=== PATIENT | female | born 1945 | race Caucasian/White ===

== ENCOUNTER 2022-02-12 07:54 | Inpatient (IN) | payer MEDICAID ==
[~2022-02-12] VITALS: Ht 157.5 cm; Wt 56.9 kg
[2022-02-12 08:55] LABS: BASOPHILS % 0.5 % (0.0-2.0); EOSINOPHILS % 3.6 % (0.0-5.0); HEMATOCRIT. 41.1 % (36.0-48.0); HEMOGLOBIN. 13.5 g/dL (12.0-16.0); LYMPHOCYTES % 26.9 % (20.0-50.0); MEAN CORPUSCULAR HEMOGLOBIN 29.7 pg (28.0-32.0); MEAN CORPUSCULAR VOLUME 90.8 fL (81.0-99.0); PLATELET 82 x1000/uL (130-400); RED BLOOD CELL COUNT 4.53 mill/uL (4.2-5.4)
[2022-02-12 09:01] LABS: CHLORIDE 110 mEq/L (98-107)
[2022-02-12 09:25] LABS: BG BASE EXCESS 5.4 mmol/L (-2.0-2.0); BG CARBOXYHEMOGLOBIN 0.7 % (0.5-1.5); BG DEOXYHEMOGLOBIN 4.6 % (0.0-5.0); BG HCO3 ACT 33.5 mmol/L (22.0-26.0); BG METHEMOGLOBIN 0.7 % (0.0-1.5); BG OXYGEN SATURATION 95.3 % (92.0-98.5); BG PCO2 66.1 mmHg (35.0-45.0); BG PH 7.323 (7.350-7.450); BG PO2 85.1 mmHg (75.0-100.0); BG SAMPLE SITE RIGHT RADIAL; BG TOTAL HEMOGLOBIN 13.6 g/dL (12.0-18.0)
[2022-02-12] MEDS ORDERED: FUROSEMIDE 40MG/4ML VIAL IVP ONE (10:00)
[2022-02-12] MEDS ORDERED: ENOXAPARIN 60MG/0.6ML SYR SUBCUT ONE (10:00)
[2022-02-12] MEDS ORDERED: ENALAPRIL 2.5MG/2ML VIAL 2ML IV ONE (10:00)
[2022-02-12] MEDS ORDERED: IPRATROPIUM/ALBUTEROL 0.5-3(2.5)MG/3ML NEB HHN PRN (10:15)
[2022-02-12] MEDS ORDERED: ONDANSETRON HCL 4MG/2ML INJ IV PRN (10:15)
[2022-02-12] MEDS ORDERED: ACETAMINOPHEN 325MG TABLET PO PRN (10:15)
[2022-02-12] MEDS ORDERED: ENALAPRIL 1.25MG/ML VIAL 1ML IV NR (10:30)
[2022-02-12 10:45] LABS: CLARITY URINE CLEAR (CLEAR); COLOR URINE YELLOW (YELLOW); KETONES URINE NEGATIVE (NEGATIVE); LEUKOCYTE ESTERASE URINE 3+ (NEGATIVE); NITRITE URINE NEGATIVE (NEGATIVE); OCCULT BLOOD URINE 1+ (NEGATIVE); PROTEIN URINE NEGATIVE (NEGATIVE)
[2022-02-12] MEDS: AMLODIPINE 10MG TABLET PO SCH (11:44)
[2022-02-12] MEDS ORDERED: IOHEXOL-350 100 ML BOTTLE ONE (12:20)
[2022-02-12] MEDS: FUROSEMIDE 40MG/4ML VIAL IVP SCH (17:29)
[2022-02-12 18:19] VITALS: BP 131/66
[2022-02-12 20:00] VITALS: BP 136/62
[2022-02-12] MEDS ORDERED: FAMO20TA8 MT (20:03)
[2022-02-12] MEDS ORDERED: FURO-152 MT (20:04)
[2022-02-12] MEDS ORDERED: MULT-1116 MT (20:05)
[2022-02-12] MEDS ORDERED: POTA8CAP20 PO (20:06)
[2022-02-12] MEDS ORDERED: SENN-257 PO (20:07)
[2022-02-12] MEDS ORDERED: CRAN3875 PO (20:08)
[2022-02-12] MEDS ORDERED: AMLO10TA80 MT (20:09)
[2022-02-12] MEDS ORDERED: DOCU-138 MT (20:10)
[2022-02-12] MEDS ORDERED: ASCO500C15 MT (20:11)
[2022-02-13] VITALS: BP 126/55
[2022-02-13] MEDS: ALBUTEROL 6.7GM HFA INHALER ORI SCH ×5 (00:58→18:31)
[2022-02-13 04:00] VITALS: BP 121/58
[2022-02-13 07:09] LABS: BASOPHILS % 0.3 % (0.0-2.0); EOSINOPHILS % 3.8 % (0.0-5.0); HEMATOCRIT. 40.5 % (36.0-48.0); HEMOGLOBIN. 13.6 g/dL (12.0-16.0); LYMPHOCYTES % 25.6 % (20.0-50.0); MEAN CORPUSCULAR HEMOGLOBIN 30.5 pg (28.0-32.0); MONOCYTES % 10.3 % (2.0-8.0); PLATELET 89 x1000/uL (130-400); RED BLOOD CELL COUNT 4.45 mill/uL (4.2-5.4); RED CELL DISTRIBUTION WIDTH 16.4 % (11.6-14.6)
[2022-02-13 07:55] LABS: BG BASE EXCESS 11.4 mmol/L (-2.0-2.0); BG CARBOXYHEMOGLOBIN 0.5 % (0.5-1.5); BG DEOXYHEMOGLOBIN 3.6 % (0.0-5.0); BG HCO3 ACT 38.9 mmol/L (22.0-26.0); BG METHEMOGLOBIN 0.2 % (0.0-1.5); BG OXYGEN SATURATION 96.4 % (92.0-98.5); BG OXYHEMOGLOBIN 95.7 % (94.0-97.0); BG PH 7.395 (7.350-7.450); BG PO2 87.6 mmHg (75.0-100.0); BG SAMPLE SITE RIGHT RADIAL; BG TOTAL HEMOGLOBIN 13.4 g/dL (12.0-18.0); BG VENT MODE NASAL CANNULA
[2022-02-13 08:00] VITALS: BP 127/83
[2022-02-13] MEDS: FUROSEMIDE 40MG/4ML VIAL IVP SCH (09:24)
[2022-02-13] MEDS: AMLODIPINE 10MG TABLET PO SCH (09:25)
[2022-02-13] MEDS ORDERED: DEXAMETHASONE 4MG TABLET PO SCH (11:00)
[2022-02-13 12:00] VITALS: BP 127/60
[2022-02-13] MEDS ORDERED: CEFTRIAXONE 1 G PREMIX 50 ML IV SCH (12:30)
[2022-02-13] MEDS: DEXTROSE 5% WATER 1,000 ML IV SCH (13:27)
[2022-02-13] MEDS: CEFTRIAXONE 1,000 MG in DEXTROSE 5% WATER 50 ML IV SCH (13:57)
[2022-02-13] MEDS: AZITHROMYCIN 500 MG in DEXT 5% WATER 250 ML IV SCH (14:38)
[2022-02-13 16:00] VITALS: BP 125/64
[2022-02-13 20:00] VITALS: BP 143/69
[2022-02-14 04:00] VITALS: BP 148/68
[2022-02-14] MEDS: ALBUTEROL 6.7GM HFA INHALER ORI SCH ×5 (05:08→18:00)
[2022-02-14 06:21] LABS: BASOPHILS % 0.1 % (0.0-2.0); HEMATOCRIT. 40.2 % (36.0-48.0); HEMOGLOBIN. 13.6 g/dL (12.0-16.0); LYMPHOCYTES % 9.5 % (20.0-50.0); MEAN CORPUSCULAR HEMOGLOBIN 30.2 pg (28.0-32.0); MEAN CORPUSCULAR VOLUME 89.3 fL (81.0-99.0); MEAN PLATELET VOLUME 8.3 fl (7.4-10.4); MONOCYTES % 1.3 % (2.0-8.0); NEUTROPHILS % 89.1 % (40.0-76.0); PLATELET 100 x1000/uL (130-400); RED BLOOD CELL COUNT 4.51 mill/uL (4.2-5.4); RED CELL DISTRIBUTION WIDTH 15.7 % (11.6-14.6)
[2022-02-14 08:00] VITALS: BP 121/45
[2022-02-14] MEDS: DEXTROSE 5% WATER 1,000 ML IV SCH (09:22)
[2022-02-14] MEDS: AMLODIPINE 10MG TABLET PO SCH (09:22)
[2022-02-14] MEDS: DEXAMETHASONE 6MG TABLET PO SCH (09:22)
[2022-02-14 12:00] VITALS: BP 106/48
[2022-02-14] MEDS: CEFTRIAXONE 1,000 MG in DEXTROSE 5% WATER 50 ML IV SCH (14:01)
[2022-02-14 16:00] VITALS: BP 113/55
[2022-02-14] MEDS: AZITHROMYCIN 500 MG in DEXT 5% WATER 250 ML IV SCH (16:07)
[2022-02-14 20:00] VITALS: BP 124/57
[2022-02-15] VITALS (7 sets, daily range): BP systolic 120–130; BP diastolic 44–56
[2022-02-15] MEDS: DEXTROSE 5% WATER 1,000 ML IV SCH (04:30)
[2022-02-15] MEDS: AMLODIPINE 10MG TABLET PO SCH (09:04)
[2022-02-15] MEDS: DEXAMETHASONE 6MG TABLET PO SCH (09:42)
[2022-02-15] MEDS: ALBUTEROL 6.7GM HFA INHALER ORI SCH ×2 (11:32→18:41)
[2022-02-15] MEDS: CEFTRIAXONE 1,000 MG in DEXTROSE 5% WATER 50 ML IV SCH (12:32)
[2022-02-15] MEDS: AZITHROMYCIN 500 MG in DEXT 5% WATER 250 ML IV SCH (13:32)
[2022-02-15] MEDS ORDERED: ENOXAPARIN 40MG/0.4ML SYR SUBCUT SCH (21:00)
[2022-02-16] VITALS: BP 144/69
[2022-02-16] MEDS: ALBUTEROL 6.7GM HFA INHALER ORI SCH ×2 (00:37→05:38)
[2022-02-16] MEDS: DEXTROSE 5% WATER 1,000 ML IV SCH (00:38)
[2022-02-16 04:00] VITALS: BP 140/52
[2022-02-16 09:08] VITALS: BP 121/52
[2022-02-16] MEDS: DEXAMETHASONE 6MG TABLET PO SCH (09:17)
[2022-02-16] MEDS: AMLODIPINE 10MG TABLET PO SCH (09:17)
[2022-02-16] MEDS ORDERED: FUROSEMIDE 40MG/4ML VIAL IVP NR (09:45)
[2022-02-16 12:00] VITALS: BP 128/55
[2022-02-16] MEDS: CEFTRIAXONE 1,000 MG in DEXTROSE 5% WATER 50 ML IV SCH (13:30)
[2022-02-16] MEDS: AZITHROMYCIN 500 MG in DEXT 5% WATER 250 ML IV SCH (14:00)
[2022-02-16 15:08] VITALS: BP 121/52
[2022-02-16 16:00] VITALS: BP 127/61
[2022-02-16] MEDS ORDERED: AZITHROMYCIN 500 MG TABLET PO SCH (17:00)
== END 2022-02-16 18:10 | DRG 137 ==
LOC: ER 07:54 → 7WST 09:54 → EDBEDREQ 09:56 → EDBEDREQTM 09:57 → EDBEDREQ 09:57 → EDBEDREQSVC 09:57 → CANRESERV 12:24 → ENRESERV 12:24 → EDBEDREQSVC 13:51 → CANRESERV 14:37 → ENRESERV 14:37 → EDBEDREQSVC 14:42 → ENRESERV 15:51 → 7EST 02-14 11:50
PROVIDERS: ADMIT Internal Medicine; ATTEND Internal Medicine
PROC: 5A0935A Assistance with Respiratory Ventilation, Less than 24 Consecutive Hours, High Flow/Velocity Cannula (ICD-10-PCS; principal; 2022-02-12)
PROC: 5A09357 Assistance with Respiratory Ventilation, Less than 24 Consecutive Hours, Continuous Positive Airway Pressure (ICD-10-PCS; 2022-02-12)
DX: U07.1 COVID-19 (principal); J96.01 Acute respiratory failure with hypoxia; I50.43 Acute on chronic combined systolic (congestive) and diastolic (congestive) heart failure; J96.02 Acute respiratory failure with hypercapnia; I11.0 Hypertensive heart disease with heart failure; J44.9 Chronic obstructive pulmonary disease, unspecified; I48.91 Unspecified atrial fibrillation; F03.90 Unspecified dementia, unspecified severity, without behavioral disturbance, psychotic disturbance, mood disturbance, and anxiety; M24.412 Recurrent dislocation, left shoulder; D69.6 Thrombocytopenia, unspecified; S81.802A Unspecified open wound, left lower leg, initial encounter; X58.XXXA Exposure to other specified factors, initial encounter; Y93.89 Activity, other specified; Y92.89 Other specified places as the place of occurrence of the external cause; Y99.8 Other external cause status
CPT/HCPCS: 36415; 36600; 71045; 71275; 80048; 80053; 81003; 82375; 82805; 83605; 83880; 84484; 85025; 85379; 87426; 93005; 94660; 99291; C9803; J0456; J0696; J1650; J1940; J3490; J7060; J7070; J8540; Q9967; U0003; U0005

== ENCOUNTER 2023-11-25 08:42 | Inpatient (IN) | payer MEDICAID ==
[~2023-11-25] VITALS: Ht 157.5 cm; Wt 55.6 kg
[2023-11-25] VITALS (46 sets, daily range): BP systolic 94–137; BP diastolic 48–79; PULSE 59–70; RESP 11–26; TEMP 94–97.6
[~2023-11-25 08:42] MED LIST: ALBU18HF2 IH; AMIN30LI2 PO; AMLO10TA80 MT; APIX2.5T PO; ASCO500C15 MT; CRAN3875 PO; DOCU-138 MT; FAMO20TA8 MT; FURO-152 MT; IPRA3AMP31 IH; METO25TA6 PO; MULT-1116 MT; POTA8CAP20 PO; TOPUD PO
[2023-11-25] MEDS: ETOMIDATE 2MG/ML 10ML VIAL IV ONE (08:44)
[2023-11-25] MEDS: SUCCINYLCHOLINE CHLORIDE 200MG/10ML IV ONE (08:44)
[2023-11-25] MEDS ORDERED: MIDAZOLAM HCL 100 MG in DEXT 5% WATER 80 ML IV ONE (09:00)
[2023-11-25] MEDS: SODIUM CHLORIDE 0.9% 1000ML BAG (SEPSIS BOLUS) IV ONE (09:00)
[2023-11-25 09:21] LABS: HEMATOCRIT. 43.6 % (36.0-48.0); HEMOGLOBIN. 14.3 g/dL (12.0-16.0); MEAN CORPUSCULAR HEMOGLOBIN 32.4 pg (28.0-32.0); MEAN CORPUSCULAR HGB CONC 32.7 g/dL (31.0-37.0); MEAN PLATELET VOLUME 8.4 fl (7.4-10.4); PLATELET 119 x1000/uL (130-400); RED CELL DISTRIBUTION WIDTH 17.7 % (11.6-14.6); WHITE BLOOD COUNT 10.4 x1000/uL (4.5-11.0)
[2023-11-25 09:27] LABS: DIFFERENTIAL COMMENT 1
[2023-11-25 09:33] LABS: INR 1.4; PROTHROMBIN TIME 14.8 sec (9.6-11.0)
[2023-11-25 09:48] LABS: BG BASE EXCESS 2.5 mmol/L (-2.0-2.0); BG CARBOXYHEMOGLOBIN 0.8 % (0.5-1.5); BG DEOXYHEMOGLOBIN 4.2 % (0.0-5.0); BG FRACTION INSPIRED OXYGEN 100; BG HCO3 ACT 31.1 mmol/L (22.0-26.0); BG METHEMOGLOBIN 0.1 % (0.0-1.5); BG OXYGEN SATURATION 95.8 % (92.0-98.5); BG OXYHEMOGLOBIN 94.9 % (94.0-97.0); BG PCO2 66.9 mmHg (35.0-45.0); BG PH 7.285 (7.350-7.450); BG PO2 89.1 mmHg (75.0-100.0); BG SAMPLE SITE RIGHT RADIAL; BG TOTAL HEMOGLOBIN 14.1 g/dL (12.0-18.0); BG VENT MODE VENT - AC
[2023-11-25] MEDS: MIDAZOLAM 100MG/100ML PREMIX IV PRN (09:54)
[2023-11-25] MEDS: MIDAZOLAM HCL 2 MG/2 ML VIAL IV ONE (09:55)
[2023-11-25 09:58] LABS: LACTIC ACID 2.3 mmol/L (0.4-2.0)
[2023-11-25] MEDS: CEFTRIAXONE 2GM/50ML 50 ML IV ONE (10:05)
[2023-11-25 10:08] LABS: PLATELET ESTIMATE DECREASED
[2023-11-25 10:09] LABS: ANISOCYTOSIS 1+
[2023-11-25 10:10] LABS: ALANINE AMINOTRANSFERASE 37 IU/L (10-49); ALBUMIN 3.6 g/dL (3.2-4.8); ASPARTATE AMINOTRANSFERASE 51 IU/L (<34); BILIRUBIN TOTAL 2.3 mg/dL (0.1-1.0); CARBON DIOXIDE 35 mEq/L (21-32); CHLORIDE 111 mEq/L (98-107); CREATININE 0.9 mg/dL (0.6-1.0); GLUCOSE 146 mg/dL (70-105); POTASSIUM 4.5 mEq/L (3.5-5.1); PROTEIN TOTAL 7.2 g/dL (6.0-8.3); SODIUM 148 mEq/L (136-145); TROPONIN I HIGH SENSITIVITY 32 ng/L (3.0-34); UREA NITROGEN BLOOD 26 mg/dL (9-23)
[2023-11-25 11:33] LABS: CLARITY URINE TURBID (CLEAR); COLOR URINE ORANGE (YELLOW); GLUCOSE URINE NEGATIVE (NEGATIVE); KETONES URINE NEGATIVE (NEGATIVE); LEUKOCYTE ESTERASE URINE 3+ (NEGATIVE); NITRITE URINE NEGATIVE (NEGATIVE); OCCULT BLOOD URINE 3+ (NEGATIVE); PROTEIN URINE 1+ (NEGATIVE); SPECIFIC GRAVITY URINE 1.011 (1.005-1.030); UROBILINOGEN URINE 0.2 E.U./dL (0.2-1.0)
[2023-11-25] MEDS: NOREPINEPHRINE 8MG/250ML PMX 250 ML IV ONE (11:37)
[2023-11-25 11:43] LABS: BACTERIA URINE 1+; RBC URINE TNTC /hpf (0-2); SQUAMOUS EPITHELIAL CELL URINE FEW /lpf (RARE/1+); WBC URINE TNTC /hpf (0-2); YEAST URINE 1+
[2023-11-25 12:23] LABS: TROPONIN I HIGH SENSITIVITY 140 ng/L (3.0-34)
[2023-11-25] MEDS ORDERED: DIPHENHYDRAMINE 50MG/ML VIAL IV PRN (13:15)
[2023-11-25] MEDS ORDERED: CLONIDINE 0.1MG TABLET PO PRN (13:15)
[2023-11-25] MEDS ORDERED: ONDANSETRON HCL 4MG/2ML INJ IV PRN (13:15)
[2023-11-25] MEDS ORDERED: CEFEPIME 2GM IN DEXT 5% 100ML IV SCH (16:15)
[2023-11-25 16:49] LABS: BG BASE EXCESS -0.1 mmol/L (-2.0-2.0); BG CARBOXYHEMOGLOBIN 0.8 % (0.5-1.5); BG DEOXYHEMOGLOBIN 0.7 % (0.0-5.0); BG FRACTION INSPIRED OXYGEN 100; BG HCO3 ACT 25.8 mmol/L (22.0-26.0); BG METHEMOGLOBIN 0.2 % (0.0-1.5); BG OXYGEN SATURATION 99.3 % (92.0-98.5); BG OXYHEMOGLOBIN 98.3 % (94.0-97.0); BG PCO2 46.1 mmHg (35.0-45.0); BG PH 7.365 (7.350-7.450); BG PO2 145.1 mmHg (75.0-100.0); BG SAMPLE SITE RIGHT RADIAL; BG TOTAL HEMOGLOBIN 16.2 g/dL (12.0-18.0); BG VENT MODE VENT - AC
[2023-11-25] MEDS ORDERED: MIDAZOLAM HCL 100 MG in SODIUM CHLORIDE 0.9% 80 ML IV PRN (17:30)
[2023-11-25 17:57] LABS: TROPONIN I HIGH SENSITIVITY 530 ng/L (3.0-34)
[2023-11-25] MEDS: CEFEPIME 2GM/100ML 100 ML IV SCH (18:03)
[2023-11-25] MEDS: AZITHROMYCIN 500MG/250ML 250 ML IV SCH (18:04)
[2023-11-25] MEDS: ENOXAPARIN 40MG/0.4ML SYR SUBCUT SCH (18:04)
[2023-11-25] MEDS: NOREPINEPHRINE 8MG/250ML PMX 250 ML IV PRN (19:00)
[2023-11-25] MEDS: METHYLPREDNISOLONE SOD SUCC 40MG/ML (ACT-O-VIAL) IV SCH (22:04)
[2023-11-25 23:34] LABS: TROPONIN I HIGH SENSITIVITY 851 ng/L (3.0-34)
[2023-11-26] VITALS (75 sets, daily range): BP systolic 90–138; BP diastolic 43–76; PULSE 60–99; RESP 0–33; TEMP 97–99.1; O2SAT 94
[2023-11-26] MEDS: IPRATROPIUM/ALBUTEROL 0.5-3(2.5)MG/3ML NEB HHN PRN (00:02)
[2023-11-26 04:38] LABS: HEMATOCRIT. 35.9 % (36.0-48.0); HEMOGLOBIN. 12.2 g/dL (12.0-16.0); MEAN CORPUSCULAR HEMOGLOBIN 32.5 pg (28.0-32.0); MEAN CORPUSCULAR HGB CONC 33.9 g/dL (31.0-37.0); MEAN PLATELET VOLUME 8.8 fl (7.4-10.4); PLATELET 57 x1000/uL (130-400); RED BLOOD CELL COUNT 3.74 mill/uL (4.2-5.4); RED CELL DISTRIBUTION WIDTH 16.9 % (11.6-14.6)
[2023-11-26 04:55] LABS: ALANINE AMINOTRANSFERASE 25 IU/L (10-49); ALBUMIN 2.6 g/dL (3.2-4.8); ASPARTATE AMINOTRANSFERASE 33 IU/L (<34); BILIRUBIN TOTAL 2.2 mg/dL (0.1-1.0); CALCIUM 8.6 mg/dL (8.7-10.4); CARBON DIOXIDE 29 mEq/L (21-32); CHLORIDE 118 mEq/L (98-107); CREATININE 0.8 mg/dL (0.6-1.0); GLUCOSE 125 mg/dL (70-105); POTASSIUM 3.6 mEq/L (3.5-5.1); PROTEIN TOTAL 5.7 g/dL (6.0-8.3); SODIUM 154 mEq/L (136-145); UREA NITROGEN BLOOD 24 mg/dL (9-23)
[2023-11-26 06:10] LABS: DIFFERENTIAL COMMENT 1
[2023-11-26 08:53] LABS: PHOSPHORUS 1.8 mg/dL (2.5-4.9)
[2023-11-26 08:55] LABS: TROPONIN I HIGH SENSITIVITY 716 ng/L (3.0-34)
[2023-11-26] MEDS: PANTOPRAZOLE SODIUM 40 MG/VIAL IV SCH (09:20)
[2023-11-26] MEDS ORDERED: CEFTRIAXONE 1GM/50ML 50 ML IV SCH (10:00)
[2023-11-26] MEDS: MAGNESIUM OXIDE 400MG TABLET NG SCH (11:37)
[2023-11-26] MEDS: MAGNESIUM 2 G PREMIX 50 ML IV NR (12:00)
[2023-11-26 14:55] LABS: BG BASE EXCESS 2.1 mmol/L (-2.0-2.0); BG CARBOXYHEMOGLOBIN 0.7 % (0.5-1.5); BG DEOXYHEMOGLOBIN 13.4 % (0.0-5.0); BG FRACTION INSPIRED OXYGEN 44; BG HCO3 ACT 28.7 mmol/L (22.0-26.0); BG METHEMOGLOBIN 0.2 % (0.0-1.5); BG OXYGEN SATURATION 86.5 % (92.0-98.5); BG OXYHEMOGLOBIN 85.7 % (94.0-97.0); BG PCO2 52.4 mmHg (35.0-45.0); BG PH 7.357 (7.350-7.450); BG PO2 55.8 mmHg (75.0-100.0); BG SAMPLE SITE RIGHT RADIAL; BG VENT MODE NASAL CANNULA
[2023-11-26 15:45] LABS: PLATELET ESTIMATE MARKEDLY DECREASED
[2023-11-26] MEDS: DEXTROSE 5% WATER 1,000 ML IV SCH (17:34)
[2023-11-26] MEDS: VANCOMYCIN 1GM/200ML PMX (BAXTER) IV SCH (20:37)
[2023-11-26 21:28] LABS: AMMONIA 53 uMol/L (<32)
[2023-11-26] MEDS: ACETAMINOPHEN 325MG TABLET PO PRN (22:42)
[2023-11-27] VITALS (36 sets, daily range): BP systolic 95–142; BP diastolic 42–81; PULSE 64–88; RESP 14–36; TEMP 97.1–98.5
[2023-11-27 05:14] LABS: BASOPHILS % 0.2 % (0.0-2.0); HEMATOCRIT. 37.6 % (36.0-48.0); HEMOGLOBIN. 12.5 g/dL (12.0-16.0); LYMPHOCYTES % 2.3 % (20.0-50.0); MEAN CORPUSCULAR HEMOGLOBIN 32.4 pg (28.0-32.0); MEAN CORPUSCULAR HGB CONC 33.2 g/dL (31.0-37.0); MEAN CORPUSCULAR VOLUME 97.6 fL (81.0-99.0); MEAN PLATELET VOLUME 9.3 fl (7.4-10.4); MONOCYTES % 3.2 % (2.0-8.0); NEUTROPHILS % 94.3 % (40.0-76.0); PLATELET 66 x1000/uL (130-400); RED BLOOD CELL COUNT 3.85 mill/uL (4.2-5.4); RED CELL DISTRIBUTION WIDTH 16.9 % (11.6-14.6); WHITE BLOOD COUNT 9.6 x1000/uL (4.5-11.0)
[2023-11-27 05:20] LABS: DIFFERENTIAL COMMENT 1
[2023-11-27 05:35] LABS: CALCIUM 8.4 mg/dL (8.7-10.4); CARBON DIOXIDE 28 mEq/L (21-32); CHLORIDE 111 mEq/L (98-107); CREATININE 0.9 mg/dL (0.6-1.0); GLUCOSE 201 mg/dL (70-105); POTASSIUM 3.3 mEq/L (3.5-5.1); UREA NITROGEN BLOOD 24 mg/dL (9-23)
[2023-11-27 05:53] LABS: SODIUM 146 mEq/L (136-145)
[2023-11-27 05:55] LABS: TROPONIN I HIGH SENSITIVITY 291 ng/L (3.0-34)
[2023-11-27 09:04] LABS: BG BASE EXCESS 1.3 mmol/L (-2.0-2.0); BG CARBOXYHEMOGLOBIN 0.3 % (0.5-1.5); BG DEOXYHEMOGLOBIN 6.7 % (0.0-5.0); BG FRACTION INSPIRED OXYGEN 40; BG HCO3 ACT 26.6 mmol/L (22.0-26.0); BG METHEMOGLOBIN 0.3 % (0.0-1.5); BG OXYGEN SATURATION 93.3 % (92.0-98.5); BG OXYHEMOGLOBIN 92.7 % (94.0-97.0); BG PO2 67.5 mmHg (75.0-100.0); BG SAMPLE SITE RIGHT BRACHIAL; BG TOTAL HEMOGLOBIN 13.3 g/dL (12.0-18.0); BG VENT MODE HIGH FLOW
[2023-11-27] MEDS: KCL 20MEQ/100ML PREMIX 100 ML IV SCH (10:03)
[2023-11-27] MEDS: VANCOMYCIN 1GM/200ML PMX (BAXTER) IV SCH (21:41)
[2023-11-28] VITALS (11 sets, daily range): BP systolic 103–129; BP diastolic 58–77; PULSE 66–90; RESP 0–35; TEMP 97.1–98.3
[2023-11-28 07:26] LABS: CALCIUM 8.4 mg/dL (8.7-10.4); CARBON DIOXIDE 28 mEq/L (21-32); CHLORIDE 111 mEq/L (98-107); CREATININE 0.8 mg/dL (0.6-1.0); GLUCOSE 138 mg/dL (70-105); POTASSIUM 4.3 mEq/L (3.5-5.1); SODIUM 145 mEq/L (136-145); UREA NITROGEN BLOOD 20 mg/dL (9-23)
[2023-11-28 07:35] LABS: HEMATOCRIT. 38.9 % (36.0-48.0); MEAN CORPUSCULAR HGB CONC 33.5 g/dL (31.0-37.0); MEAN CORPUSCULAR VOLUME 95.7 fL (81.0-99.0); PLATELET 70 x1000/uL (130-400); RED BLOOD CELL COUNT 4.07 mill/uL (4.2-5.4); RED CELL DISTRIBUTION WIDTH 16.5 % (11.6-14.6)
[2023-11-28 08:22] LABS: DIFFERENTIAL COMMENT 1
[2023-11-28 17:38] LABS: PLATELET ESTIMATE DECREASED
[2023-11-29] VITALS (13 sets, daily range): BP systolic 104–137; BP diastolic 48–83; PULSE 61–80; RESP 14–31; TEMP 97–98.6
[2023-11-29 12:17] LABS: BG BASE EXCESS 2.5 mmol/L (-2.0-2.0); BG CARBOXYHEMOGLOBIN 0.3 % (0.5-1.5); BG DEOXYHEMOGLOBIN 3.6 % (0.0-5.0); BG FRACTION INSPIRED OXYGEN 40; BG HCO3 ACT 28.8 mmol/L (22.0-26.0); BG METHEMOGLOBIN 0.2 % (0.0-1.5); BG OXYGEN SATURATION 96.4 % (92.0-98.5); BG OXYHEMOGLOBIN 95.9 % (94.0-97.0); BG PCO2 51.3 mmHg (35.0-45.0); BG PH 7.367 (7.350-7.450); BG PO2 84.8 mmHg (75.0-100.0); BG SAMPLE SITE RIGHT RADIAL; BG TOTAL HEMOGLOBIN 13.6 g/dL (12.0-18.0); BG VENT MODE HIGH FLOW
[2023-11-30] VITALS (12 sets, daily range): BP systolic 122–149; BP diastolic 53–79; PULSE 68–95; RESP 16–26; TEMP 97.7–98.8
[2023-11-30 07:44] LABS: HEMATOCRIT. 37.6 % (36.0-48.0); HEMOGLOBIN. 12.6 g/dL (12.0-16.0); MEAN CORPUSCULAR HEMOGLOBIN 31.9 pg (28.0-32.0); MEAN CORPUSCULAR HGB CONC 33.4 g/dL (31.0-37.0); MEAN CORPUSCULAR VOLUME 95.6 fL (81.0-99.0); MEAN PLATELET VOLUME 8.6 fl (7.4-10.4); PLATELET 73 x1000/uL (130-400); RED BLOOD CELL COUNT 3.93 mill/uL (4.2-5.4); RED CELL DISTRIBUTION WIDTH 16.6 % (11.6-14.6); WHITE BLOOD COUNT 11.5 x1000/uL (4.5-11.0)
[2023-11-30 08:09] LABS: CALCIUM 8.2 mg/dL (8.7-10.4); CARBON DIOXIDE 27 mEq/L (21-32); CHLORIDE 114 mEq/L (98-107); CREATININE 0.7 mg/dL (0.6-1.0); GLUCOSE 162 mg/dL (70-105); POTASSIUM 4.2 mEq/L (3.5-5.1); SODIUM 146 mEq/L (136-145); UREA NITROGEN BLOOD 18 mg/dL (9-23)
[2023-11-30 08:18] LABS: DIFFERENTIAL COMMENT 1
[2023-11-30 17:04] LABS: ANISOCYTOSIS 1+; PLATELET ESTIMATE DECREASED
[2023-12-01] VITALS (12 sets, daily range): BP systolic 125–161; BP diastolic 61–96; PULSE 77–94; RESP 20–35; TEMP 97.2–98.2
[2023-12-01 12:08] LABS: BG CARBOXYHEMOGLOBIN 0.6 % (0.5-1.5); BG DEOXYHEMOGLOBIN 3.8 % (0.0-5.0); BG FRACTION INSPIRED OXYGEN 32; BG HCO3 ACT 27.4 mmol/L (22.0-26.0); BG METHEMOGLOBIN 0.4 % (0.0-1.5); BG OXYGEN SATURATION 96.2 % (92.0-98.5); BG OXYHEMOGLOBIN 95.2 % (94.0-97.0); BG PCO2 55.7 mmHg (35.0-45.0); BG PH 7.309 (7.350-7.450); BG PO2 88.5 mmHg (75.0-100.0); BG SAMPLE SITE RIGHT RADIAL; BG TOTAL HEMOGLOBIN 14.1 g/dL (12.0-18.0); BG VENT MODE NASAL CANNULA
[2023-12-01 21:59] LABS: HEMATOCRIT. 41.8 % (36.0-48.0); HEMOGLOBIN. 13.4 g/dL (12.0-16.0); MEAN CORPUSCULAR HEMOGLOBIN 31.4 pg (28.0-32.0); MEAN CORPUSCULAR HGB CONC 32.1 g/dL (31.0-37.0); MEAN CORPUSCULAR VOLUME 97.7 fL (81.0-99.0); MEAN PLATELET VOLUME 8.6 fl (7.4-10.4); PLATELET 108 x1000/uL (130-400); RED BLOOD CELL COUNT 4.28 mill/uL (4.2-5.4); RED CELL DISTRIBUTION WIDTH 17.1 % (11.6-14.6); WHITE BLOOD COUNT 18.3 x1000/uL (4.5-11.0)
[2023-12-01 22:01] LABS: DIFFERENTIAL COMMENT 1
[2023-12-01 22:17] LABS: PLATELET ESTIMATE DECREASED
[2023-12-02] VITALS (15 sets, daily range): BP systolic 98–170; BP diastolic 55–86; PULSE 74–91; RESP 14–32; TEMP 97–98.3
[2023-12-02 07:06] LABS: HEMOGLOBIN. 13.3 g/dL (12.0-16.0); MEAN CORPUSCULAR HEMOGLOBIN 31.6 pg (28.0-32.0); MEAN CORPUSCULAR HGB CONC 33.3 g/dL (31.0-37.0); MEAN CORPUSCULAR VOLUME 95.1 fL (81.0-99.0); MEAN PLATELET VOLUME 8.7 fl (7.4-10.4); PLATELET 83 x1000/uL (130-400); RED BLOOD CELL COUNT 4.21 mill/uL (4.2-5.4); RED CELL DISTRIBUTION WIDTH 16.5 % (11.6-14.6); WHITE BLOOD COUNT 14.6 x1000/uL (4.5-11.0)
[2023-12-02 07:08] LABS: CALCIUM 9.1 mg/dL (8.7-10.4); CARBON DIOXIDE 26 mEq/L (21-32); CHLORIDE 117 mEq/L (98-107); CREATININE 0.7 mg/dL (0.6-1.0); GLUCOSE 168 mg/dL (70-105); POTASSIUM 4.4 mEq/L (3.5-5.1); SODIUM 149 mEq/L (136-145); UREA NITROGEN BLOOD 22 mg/dL (9-23)
[2023-12-02 07:19] LABS: DIFFERENTIAL COMMENT 1
[2023-12-02] MEDS: AMLODIPINE 5MG TABLET PO SCH (09:47)
[2023-12-02] MEDS: PANTOPRAZOLE 40MG DR TABLET PO SCH (09:47)
[2023-12-02] MEDS: PREDNISONE 20MG TABLET PO SCH (09:47)
[2023-12-02 10:38] LABS: BG BASE EXCESS 2.5 mmol/L (-2.0-2.0); BG CARBOXYHEMOGLOBIN 1.2 % (0.5-1.5); BG DEOXYHEMOGLOBIN 7.6 % (0.0-5.0); BG FRACTION INSPIRED OXYGEN 21; BG HCO3 ACT 29.5 mmol/L (22.0-26.0); BG METHEMOGLOBIN 0.3 % (0.0-1.5); BG OXYGEN SATURATION 92.3 % (92.0-98.5); BG OXYHEMOGLOBIN 90.9 % (94.0-97.0); BG PCO2 54.7 mmHg (35.0-45.0); BG PH 7.349 (7.350-7.450); BG PO2 65.1 mmHg (75.0-100.0); BG SAMPLE SITE RIGHT RADIAL; BG TOTAL HEMOGLOBIN 14.7 g/dL (12.0-18.0); BG VENT MODE ROOM AIR
[2023-12-02 10:44] LABS: AMMONIA 112 uMol/L (<32)
[2023-12-02] MEDS: APIXABAN 2.5 MG TABLET PO SCH (13:00)
[2023-12-02 13:33] LABS: ANISOCYTOSIS 1+; PLATELET ESTIMATE DECREASED
[2023-12-02] MEDS: LACTULOSE 20G/30ML UDC PO SCH (13:59)
[2023-12-02] MEDS: RIFAXIMIN 550 MG TABLET PO SCH (18:10)
[2023-12-03] VITALS (16 sets, daily range): BP systolic 107–143; BP diastolic 53–65; PULSE 75–91; RESP 15–36; TEMP 97–98.1
[2023-12-03 07:31] LABS: CARBON DIOXIDE 25 mEq/L (21-32); CHLORIDE 121 mEq/L (98-107); CREATININE 0.7 mg/dL (0.6-1.0); GLUCOSE 115 mg/dL (70-105); POTASSIUM 4.3 mEq/L (3.5-5.1); SODIUM 152 mEq/L (136-145); UREA NITROGEN BLOOD 21 mg/dL (9-23)
[2023-12-03 08:41] LABS: HEMATOCRIT. 40.8 % (36.0-48.0); HEMOGLOBIN. 13.2 g/dL (12.0-16.0); MEAN CORPUSCULAR HEMOGLOBIN 32.4 pg (28.0-32.0); MEAN CORPUSCULAR HGB CONC 32.3 g/dL (31.0-37.0); MEAN CORPUSCULAR VOLUME 100.5 fL (81.0-99.0); MEAN PLATELET VOLUME 9.8 fl (7.4-10.4); PLATELET 61 x1000/uL (130-400); RED BLOOD CELL COUNT 4.05 mill/uL (4.2-5.4); RED CELL DISTRIBUTION WIDTH 17.6 % (11.6-14.6); WHITE BLOOD COUNT 10.6 x1000/uL (4.5-11.0)
[2023-12-03 09:18] LABS: DIFFERENTIAL COMMENT 1
[2023-12-03 14:16] LABS: AMMONIA 170 uMol/L (<32)
[2023-12-03 20:23] LABS: ANISOCYTOSIS 1+; PLATELET ESTIMATE MARKEDLY DECREASED
[2023-12-03] MEDS: LACTULOSE PR SCH (21:00)
[2023-12-03] MEDS: WATER FOR IRRIGATION STERILE PR SCH (21:00)
[2023-12-03] MEDS: PANTOPRAZOLE SODIUM 40 MG/VIAL IV SCH (21:01)
[2023-12-03] MEDS: VANCOMYCIN 1GM/200ML PMX (BAXTER) IV NR (22:16)
[2023-12-04] VITALS (15 sets, daily range): BP systolic 96–147; BP diastolic 31–71; PULSE 75–98; RESP 18–33; TEMP 96.8–98.8
[2023-12-04 09:11] LABS: BG BASE EXCESS 1.7 mmol/L (-2.0-2.0); BG CARBOXYHEMOGLOBIN 0.7 % (0.5-1.5); BG FRACTION INSPIRED OXYGEN 40; BG HCO3 ACT 29.7 mmol/L (22.0-26.0); BG METHEMOGLOBIN 0.4 % (0.0-1.5); BG OXYHEMOGLOBIN 97.9 % (94.0-97.0); BG PCO2 62.7 mmHg (35.0-45.0); BG PH 7.294 (7.350-7.450); BG PO2 186.3 mmHg (75.0-100.0); BG SAMPLE SITE RIGHT RADIAL; BG TOTAL HEMOGLOBIN 13.5 g/dL (12.0-18.0); BG VENT MODE NASAL CANNULA
[2023-12-04 11:03] LABS: HEMATOCRIT. 38.2 % (36.0-48.0); HEMOGLOBIN. 12.4 g/dL (12.0-16.0); MEAN CORPUSCULAR HEMOGLOBIN 32.3 pg (28.0-32.0); MEAN CORPUSCULAR HGB CONC 32.5 g/dL (31.0-37.0); MEAN CORPUSCULAR VOLUME 99.4 fL (81.0-99.0); MEAN PLATELET VOLUME 9.1 fl (7.4-10.4); PLATELET 53 x1000/uL (130-400); RED BLOOD CELL COUNT 3.85 mill/uL (4.2-5.4); RED CELL DISTRIBUTION WIDTH 17.7 % (11.6-14.6); WHITE BLOOD COUNT 12.9 x1000/uL (4.5-11.0)
[2023-12-04 11:07] LABS: DIFFERENTIAL COMMENT 1
[2023-12-04 11:12] LABS: INR 1.4; PROTHROMBIN TIME 15.1 sec (9.6-11.0)
[2023-12-04 11:59] LABS: ALANINE AMINOTRANSFERASE 55 IU/L (10-49); ALBUMIN 2.6 g/dL (3.2-4.8); ASPARTATE AMINOTRANSFERASE 46 IU/L (<34); BILIRUBIN DIRECT 1.1 mg/dL (<=3.0); BILIRUBIN TOTAL 2.5 mg/dL (0.1-1.0); CALCIUM 8.5 mg/dL (8.7-10.4); CARBON DIOXIDE 29 mEq/L (21-32); CHLORIDE 123 mEq/L (98-107); CREATININE 0.7 mg/dL (0.6-1.0); GLUCOSE 229 mg/dL (70-105); POTASSIUM 4.1 mEq/L (3.5-5.1); PROTEIN TOTAL 5.3 g/dL (6.0-8.3); UREA NITROGEN BLOOD 18 mg/dL (9-23)
[2023-12-04 12:05] LABS: SODIUM 157 mEq/L (136-145)
[2023-12-04 12:06] LABS: AMMONIA 154 uMol/L (<32)
[2023-12-04 13:48] LABS: BG BASE EXCESS 4.8 mmol/L (-2.0-2.0); BG CARBOXYHEMOGLOBIN 0.7 % (0.5-1.5); BG DEOXYHEMOGLOBIN 1.8 % (0.0-5.0); BG FRACTION INSPIRED OXYGEN 40; BG HCO3 ACT 32.7 mmol/L (22.0-26.0); BG METHEMOGLOBIN 0.4 % (0.0-1.5); BG OXYGEN SATURATION 98.2 % (92.0-98.5); BG OXYHEMOGLOBIN 97.1 % (94.0-97.0); BG PH 7.326 (7.350-7.450); BG PO2 115.9 mmHg (75.0-100.0); BG SAMPLE SITE RIGHT RADIAL; BG TOTAL HEMOGLOBIN 13.6 g/dL (12.0-18.0); BG TOTAL RESPIRATORY RATE 36 b/min; BG VENT MODE MASK - BIPAP
[2023-12-04 15:50] LABS: PLATELET ESTIMATE DECREASED
[2023-12-04] MEDS: LACTULOSE 20G/30ML UDC PO SCH (16:00)
[2023-12-04] MEDS: DEXTROSE 5% WATER 1,000 ML IV SCH (18:58)
[2023-12-04] MEDS: VANCOMYCIN 1GM/200ML PMX (BAXTER) IV SCH (21:59)
[2023-12-05] VITALS (14 sets, daily range): BP systolic 97–134; BP diastolic 49–67; PULSE 71–96; RESP 23–42; TEMP 96.8–98.7
[2023-12-05 06:47] LABS: HEMATOCRIT. 36.8 % (36.0-48.0); HEMOGLOBIN. 12.1 g/dL (12.0-16.0); MEAN CORPUSCULAR HGB CONC 32.8 g/dL (31.0-37.0); MEAN CORPUSCULAR VOLUME 97.6 fL (81.0-99.0); MEAN PLATELET VOLUME 8.8 fl (7.4-10.4); PLATELET 52 x1000/uL (130-400); RED BLOOD CELL COUNT 3.77 mill/uL (4.2-5.4); RED CELL DISTRIBUTION WIDTH 17.2 % (11.6-14.6); WHITE BLOOD COUNT 10.8 x1000/uL (4.5-11.0)
[2023-12-05 06:52] LABS: DIFFERENTIAL COMMENT 1
[2023-12-05 07:05] LABS: CALCIUM 8.8 mg/dL (8.7-10.4); CARBON DIOXIDE 30 mEq/L (21-32); CHLORIDE 122 mEq/L (98-107); CREATININE 0.8 mg/dL (0.6-1.0); GLUCOSE 143 mg/dL (70-105); POTASSIUM 3.6 mEq/L (3.5-5.1); UREA NITROGEN BLOOD 17 mg/dL (9-23)
[2023-12-05 08:19] LABS: AMMONIA 145 uMol/L (<32)
[2023-12-05 08:23] LABS: SODIUM 157 mEq/L (136-145)
[2023-12-05 11:16] LABS: BG BASE EXCESS -0.7 mmol/L (-2.0-2.0); BG CARBOXYHEMOGLOBIN 0.3 % (0.5-1.5); BG DEOXYHEMOGLOBIN 4.5 % (0.0-5.0); BG FRACTION INSPIRED OXYGEN 30; BG HCO3 ACT 27.9 mmol/L (22.0-26.0); BG METHEMOGLOBIN 0.5 % (0.0-1.5); BG OXYGEN SATURATION 95.5 % (92.0-98.5); BG OXYHEMOGLOBIN 94.7 % (94.0-97.0); BG PCO2 65.1 mmHg (35.0-45.0); BG SAMPLE SITE RIGHT BRACHIAL; BG TOTAL HEMOGLOBIN 12.9 g/dL (12.0-18.0); BG VENT MODE NASAL CANNULA
[2023-12-05 16:25] LABS: PLATELET ESTIMATE DECREASED
[2023-12-06] VITALS (14 sets, daily range): BP systolic 94–133; BP diastolic 50–70; PULSE 71–87; RESP 17–41; TEMP 97–98.2
[2023-12-06 07:27] LABS: CALCIUM 8.3 mg/dL (8.7-10.4); CARBON DIOXIDE 32 mEq/L (21-32); CHLORIDE 117 mEq/L (98-107); CREATININE 0.7 mg/dL (0.6-1.0); GLUCOSE 138 mg/dL (70-105); POTASSIUM 3.7 mEq/L (3.5-5.1); SODIUM 152 mEq/L (136-145); UREA NITROGEN BLOOD 16 mg/dL (9-23)
[2023-12-06 08:32] LABS: HEMATOCRIT. 37.5 % (36.0-48.0); HEMOGLOBIN. 11.9 g/dL (12.0-16.0); MEAN CORPUSCULAR HEMOGLOBIN 31.7 pg (28.0-32.0); MEAN CORPUSCULAR HGB CONC 31.6 g/dL (31.0-37.0); MEAN CORPUSCULAR VOLUME 100.1 fL (81.0-99.0); MEAN PLATELET VOLUME 9.5 fl (7.4-10.4); RED BLOOD CELL COUNT 3.75 mill/uL (4.2-5.4); RED CELL DISTRIBUTION WIDTH 18.1 % (11.6-14.6); WHITE BLOOD COUNT 10.8 x1000/uL (4.5-11.0)
[2023-12-06 08:50] LABS: DIFFERENTIAL COMMENT 1
[2023-12-06 08:52] LABS: PLATELET 45 x1000/uL (130-400)
[2023-12-06 08:57] LABS: BG BASE EXCESS 2.3 mmol/L (-2.0-2.0); BG CARBOXYHEMOGLOBIN 0.5 % (0.5-1.5); BG DEOXYHEMOGLOBIN 10.3 % (0.0-5.0); BG FRACTION INSPIRED OXYGEN 21; BG HCO3 ACT 29.8 mmol/L (22.0-26.0); BG METHEMOGLOBIN 0.5 % (0.0-1.5); BG OXYGEN SATURATION 89.6 % (92.0-98.5); BG OXYHEMOGLOBIN 88.7 % (94.0-97.0); BG PCO2 59.3 mmHg (35.0-45.0); BG PH 7.319 (7.350-7.450); BG PO2 59.3 mmHg (75.0-100.0); BG SAMPLE SITE RIGHT RADIAL; BG TOTAL HEMOGLOBIN 13.1 g/dL (12.0-18.0); BG VENT MODE ROOM AIR
[2023-12-06 21:49] LABS: ANISOCYTOSIS 1+; PLATELET ESTIMATE MARKEDLY DECREASED
[2023-12-07] VITALS (16 sets, daily range): BP systolic 95–135; BP diastolic 44–85; PULSE 62–82; RESP 8–37; TEMP 96.7–98.6
[2023-12-07 08:36] LABS: BG BASE EXCESS 2.3 mmol/L (-2.0-2.0); BG CARBOXYHEMOGLOBIN 0.9 % (0.5-1.5); BG DEOXYHEMOGLOBIN 8.9 % (0.0-5.0); BG HCO3 ACT 31.3 mmol/L (22.0-26.0); BG METHEMOGLOBIN 0.3 % (0.0-1.5); BG OXYHEMOGLOBIN 89.9 % (94.0-97.0); BG PCO2 71.4 mmHg (35.0-45.0); BG PO2 64.9 mmHg (75.0-100.0); BG SAMPLE SITE RIGHT RADIAL; BG TOTAL HEMOGLOBIN 13.2 g/dL (12.0-18.0); BG VENT MODE NASAL CANNULA
[2023-12-07 08:38] LABS: HEMATOCRIT. 37.4 % (36.0-48.0); HEMOGLOBIN. 12.1 g/dL (12.0-16.0); MEAN CORPUSCULAR HEMOGLOBIN 31.8 pg (28.0-32.0); MEAN CORPUSCULAR HGB CONC 32.5 g/dL (31.0-37.0); MEAN PLATELET VOLUME 9.3 fl (7.4-10.4); PLATELET 54 x1000/uL (130-400); RED BLOOD CELL COUNT 3.81 mill/uL (4.2-5.4); RED CELL DISTRIBUTION WIDTH 17.6 % (11.6-14.6); WHITE BLOOD COUNT 13.6 x1000/uL (4.5-11.0)
[2023-12-07 08:52] LABS: ALANINE AMINOTRANSFERASE 79 IU/L (10-49); ALBUMIN 2.8 g/dL (3.2-4.8); ASPARTATE AMINOTRANSFERASE 52 IU/L (<34); BILIRUBIN DIRECT 1.1 mg/dL (<=3.0); BILIRUBIN TOTAL 2.7 mg/dL (0.1-1.0); CALCIUM 8.4 mg/dL (8.7-10.4); CARBON DIOXIDE 29 mEq/L (21-32); CHLORIDE 110 mEq/L (98-107); CREATININE 0.6 mg/dL (0.6-1.0); DIFFERENTIAL COMMENT 1; GLUCOSE 172 mg/dL (70-105); POTASSIUM 3.8 mEq/L (3.5-5.1); PROTEIN TOTAL 6.1 g/dL (6.0-8.3); SODIUM 144 mEq/L (136-145); UREA NITROGEN BLOOD 14 mg/dL (9-23)
[2023-12-07 09:38] LABS: AMMONIA 234 uMol/L (<32)
[2023-12-07] MEDS: METHYLPREDNISOLONE SOD SUCC 40MG/ML (ACT-O-VIAL) IV SCH (11:26)
[2023-12-07 12:14] LABS: PLATELET ESTIMATE DECREASED
[2023-12-07 12:15] LABS: ANISOCYTOSIS 1+
[2023-12-07] MEDS: IPRATROPIUM/ALBUTEROL 0.5-3(2.5)MG/3ML NEB HHN SCH (12:35)
[2023-12-07] MEDS ORDERED: LACTULOSE ENEMA 1,000ML BOTTLE PR NR (13:00)
[2023-12-07 14:06] LABS: BG BASE EXCESS 3.1 mmol/L (-2.0-2.0); BG CARBOXYHEMOGLOBIN 0.8 % (0.5-1.5); BG DEOXYHEMOGLOBIN 6.3 % (0.0-5.0); BG HCO3 ACT 29.3 mmol/L (22.0-26.0); BG METHEMOGLOBIN 0.2 % (0.0-1.5); BG OXYGEN SATURATION 93.6 % (92.0-98.5); BG OXYHEMOGLOBIN 92.7 % (94.0-97.0); BG PCO2 51.3 mmHg (35.0-45.0); BG PH 7.374 (7.350-7.450); BG PO2 66.2 mmHg (75.0-100.0); BG SAMPLE SITE RIGHT RADIAL; BG TOTAL HEMOGLOBIN 12.4 g/dL (12.0-18.0); BG VENT MODE MASK - BIPAP
[2023-12-07] MEDS: LACTULOSE 300 ML in WATER FOR IRRIGATION,STERILE 700 ML PR NR (15:26)
[2023-12-07] MEDS: ACETYLCYSTEINE 200MG/ML 20% VIAL 4ML INH SCH (16:35)
[2023-12-07] MEDS: LACTULOSE 20G/30ML UDC PO SCH (17:25)
[2023-12-08] VITALS (18 sets, daily range): BP systolic 90–146; BP diastolic 47–67; PULSE 64–88; RESP 16–46; TEMP 92–98; O2SAT 97–98
[2023-12-08 06:24] LABS: HEMATOCRIT. 34.2 % (36.0-48.0); HEMOGLOBIN. 11.5 g/dL (12.0-16.0); MEAN CORPUSCULAR HEMOGLOBIN 32.2 pg (28.0-32.0); MEAN CORPUSCULAR HGB CONC 33.8 g/dL (31.0-37.0); MEAN CORPUSCULAR VOLUME 95.4 fL (81.0-99.0); MEAN PLATELET VOLUME 9.5 fl (7.4-10.4); RED BLOOD CELL COUNT 3.58 mill/uL (4.2-5.4); RED CELL DISTRIBUTION WIDTH 16.8 % (11.6-14.6); WHITE BLOOD COUNT 6.9 x1000/uL (4.5-11.0)
[2023-12-08 06:44] LABS: ALANINE AMINOTRANSFERASE 62 IU/L (10-49); ALBUMIN 2.6 g/dL (3.2-4.8); ASPARTATE AMINOTRANSFERASE 29 IU/L (<34); BILIRUBIN DIRECT 0.9 mg/dL (<=3.0); BILIRUBIN TOTAL 2.2 mg/dL (0.1-1.0); CALCIUM 8.1 mg/dL (8.7-10.4); CARBON DIOXIDE 27 mEq/L (21-32); CHLORIDE 109 mEq/L (98-107); CREATININE 0.7 mg/dL (0.6-1.0); GLUCOSE 229 mg/dL (70-105); PHOSPHORUS 1.7 mg/dL (2.5-4.9); POTASSIUM 3.9 mEq/L (3.5-5.1); PROTEIN TOTAL 5.5 g/dL (6.0-8.3); SODIUM 142 mEq/L (136-145); UREA NITROGEN BLOOD 15 mg/dL (9-23)
[2023-12-08 06:45] LABS: AMMONIA 121 uMol/L (<32)
[2023-12-08 06:50] LABS: DIFFERENTIAL COMMENT 1
[2023-12-08 06:51] LABS: PLATELET 42 x1000/uL (130-400)
[2023-12-08 08:35] LABS: BG BASE EXCESS 0.3 mmol/L (-2.0-2.0); BG DEOXYHEMOGLOBIN 2.2 % (0.0-5.0); BG HCO3 ACT 25.6 mmol/L (22.0-26.0); BG METHEMOGLOBIN 0.1 % (0.0-1.5); BG OXYGEN SATURATION 97.8 % (92.0-98.5); BG OXYHEMOGLOBIN 97.7 % (94.0-97.0); BG PCO2 43.7 mmHg (35.0-45.0); BG PH 7.385 (7.350-7.450); BG PO2 110.6 mmHg (75.0-100.0); BG SAMPLE SITE RIGHT RADIAL; BG TOTAL HEMOGLOBIN 13.3 g/dL (12.0-18.0); BG VENT MODE MASK - BIPAP
[2023-12-08 13:26] LABS: ANISOCYTOSIS 1+; PLATELET ESTIMATE SLIGHTLY DECREASED
[2023-12-09] VITALS (16 sets, daily range): BP systolic 120–139; BP diastolic 47–73; PULSE 76–90; RESP 22–47; TEMP 97.2–98; O2SAT 95–97
[2023-12-09 06:34] LABS: HEMATOCRIT. 36.9 % (36.0-48.0); HEMOGLOBIN. 12.3 g/dL (12.0-16.0); MEAN CORPUSCULAR HEMOGLOBIN 31.6 pg (28.0-32.0); MEAN CORPUSCULAR HGB CONC 33.4 g/dL (31.0-37.0); MEAN CORPUSCULAR VOLUME 94.6 fL (81.0-99.0); MEAN PLATELET VOLUME 9.3 fl (7.4-10.4); PLATELET 64 x1000/uL (130-400); RED BLOOD CELL COUNT 3.91 mill/uL (4.2-5.4); RED CELL DISTRIBUTION WIDTH 16.5 % (11.6-14.6); WHITE BLOOD COUNT 15.7 x1000/uL (4.5-11.0)
[2023-12-09 06:39] LABS: AMMONIA 82 uMol/L (<32)
[2023-12-09 06:40] LABS: CALCIUM 8.8 mg/dL (8.7-10.4); CARBON DIOXIDE 28 mEq/L (21-32); CHLORIDE 110 mEq/L (98-107); CREATININE 0.8 mg/dL (0.6-1.0); GLUCOSE 163 mg/dL (70-105); POTASSIUM 4.4 mEq/L (3.5-5.1); SODIUM 144 mEq/L (136-145); UREA NITROGEN BLOOD 20 mg/dL (9-23)
[2023-12-09 08:23] LABS: DIFFERENTIAL COMMENT 1
[2023-12-09 14:22] LABS: ANISOCYTOSIS 1+; PLATELET ESTIMATE MARKEDLY DECREASED
[2023-12-09] MEDS: METHYLPREDNISOLONE SOD SUCC 40MG/ML (ACT-O-VIAL) IV SCH (21:54)
[2023-12-10] VITALS (18 sets, daily range): BP systolic 125–147; BP diastolic 55–67; PULSE 81–101; RESP 16–52; TEMP 97.6–98; O2SAT 82–99
[2023-12-10 05:58] LABS: HEMATOCRIT. 39.5 % (36.0-48.0); HEMOGLOBIN. 12.8 g/dL (12.0-16.0); MEAN CORPUSCULAR HEMOGLOBIN 31.7 pg (28.0-32.0); MEAN CORPUSCULAR HGB CONC 32.4 g/dL (31.0-37.0); MEAN CORPUSCULAR VOLUME 97.9 fL (81.0-99.0); MEAN PLATELET VOLUME 9.5 fl (7.4-10.4); PLATELET 66 x1000/uL (130-400); RED BLOOD CELL COUNT 4.04 mill/uL (4.2-5.4); RED CELL DISTRIBUTION WIDTH 17.5 % (11.6-14.6)
[2023-12-10 06:07] LABS: AMMONIA 99 uMol/L (<32)
[2023-12-10 07:01] LABS: DIFFERENTIAL COMMENT 1
[2023-12-10 11:37] LABS: ALBUMIN 2.9 g/dL (3.2-4.8); CALCIUM 8.7 mg/dL (8.7-10.4); CARBON DIOXIDE 28 mEq/L (21-32); CHLORIDE 113 mEq/L (98-107); CREATININE 0.7 mg/dL (0.6-1.0); GLUCOSE 188 mg/dL (70-105); PHOSPHORUS 2.4 mg/dL (2.5-4.9); POTASSIUM 4.7 mEq/L (3.5-5.1); PREALBUMIN 7.8 mg/dl (10.0-40.0); SODIUM 148 mEq/L (136-145); UREA NITROGEN BLOOD 29 mg/dL (9-23)
[2023-12-10 13:49] LABS: ANISOCYTOSIS 1+; PLATELET ESTIMATE MARKEDLY DECREASED
[2023-12-10] MEDS: RIFAXIMIN 550 MG TABLET PO SCH (21:19)
[2023-12-11] VITALS (17 sets, daily range): BP systolic 120–149; BP diastolic 50–121; PULSE 86–107; RESP 18–39; TEMP 97–98.2; O2SAT 95
[2023-12-11] MEDS: IPRATROPIUM/ALBUTEROL 0.5-3(2.5)MG/3ML NEB HHN PRN (06:08)
[2023-12-11 06:26] LABS: HEMATOCRIT. 38.6 % (36.0-48.0); HEMOGLOBIN. 12.8 g/dL (12.0-16.0); MEAN CORPUSCULAR HEMOGLOBIN 32.3 pg (28.0-32.0); MEAN CORPUSCULAR HGB CONC 33.1 g/dL (31.0-37.0); MEAN CORPUSCULAR VOLUME 97.5 fL (81.0-99.0); MEAN PLATELET VOLUME 9.3 fl (7.4-10.4); PLATELET 57 x1000/uL (130-400); RED BLOOD CELL COUNT 3.96 mill/uL (4.2-5.4); RED CELL DISTRIBUTION WIDTH 17.8 % (11.6-14.6); WHITE BLOOD COUNT 10.7 x1000/uL (4.5-11.0)
[2023-12-11 06:47] LABS: CALCIUM 9.4 mg/dL (8.7-10.4); CARBON DIOXIDE 31 mEq/L (21-32); CHLORIDE 116 mEq/L (98-107); CREATININE 0.9 mg/dL (0.6-1.0); GLUCOSE 203 mg/dL (70-105); POTASSIUM 4.8 mEq/L (3.5-5.1); SODIUM 151 mEq/L (136-145); UREA NITROGEN BLOOD 30 mg/dL (9-23)
[2023-12-11 07:11] LABS: DIFFERENTIAL COMMENT 1
[2023-12-11 10:15] LABS: BG BASE EXCESS 0.7 mmol/L (-2.0-2.0); BG CARBOXYHEMOGLOBIN 0.3 % (0.5-1.5); BG DEOXYHEMOGLOBIN 0.6 % (0.0-5.0); BG FRACTION INSPIRED OXYGEN 100; BG HCO3 ACT 30.4 mmol/L (22.0-26.0); BG METHEMOGLOBIN 0.3 % (0.0-1.5); BG OXYGEN SATURATION 99.4 % (92.0-98.5); BG OXYHEMOGLOBIN 98.8 % (94.0-97.0); BG PCO2 73.8 mmHg (35.0-45.0); BG PH 7.232 (7.350-7.450); BG PO2 333.4 mmHg (75.0-100.0); BG SAMPLE SITE RIGHT RADIAL; BG TOTAL HEMOGLOBIN 13.9 g/dL (12.0-18.0); BG TOTAL RESPIRATORY RATE 38 b/min; BG VENT MODE MASK - BIPAP
[2023-12-11] MEDS: DEXTROSE 5% WATER 1,000 ML IV SCH ×2 (10:15→19:00)
[2023-12-11] MEDS: LACTULOSE ENEMA 1,000ML BOTTLE PR NR (13:57)
[2023-12-11 16:47] LABS: PLATELET ESTIMATE DECREASED
[2023-12-11] MEDS: BUDESONIDE 0.5MG/2ML NEB HHN SCH (21:44)
[2023-12-12] VITALS (18 sets, daily range): BP systolic 116–191; BP diastolic 45–163; PULSE 82–112; RESP 10–43; TEMP 97.4–97.9; O2SAT 97
[2023-12-12 07:26] LABS: AMMONIA 59 uMol/L (<32)
[2023-12-12 07:33] LABS: ALANINE AMINOTRANSFERASE 65 IU/L (10-49); ALBUMIN 2.8 g/dL (3.2-4.8); ASPARTATE AMINOTRANSFERASE 38 IU/L (<34); BILIRUBIN TOTAL 2.2 mg/dL (0.1-1.0); CALCIUM 8.9 mg/dL (8.7-10.4); CARBON DIOXIDE 29 mEq/L (21-32); CHLORIDE 116 mEq/L (98-107); CREATININE 0.9 mg/dL (0.6-1.0); GLUCOSE 242 mg/dL (70-105); POTASSIUM 4.9 mEq/L (3.5-5.1); SODIUM 152 mEq/L (136-145); UREA NITROGEN BLOOD 29 mg/dL (9-23)
[2023-12-12 07:43] LABS: HEMATOCRIT. 37.2 % (36.0-48.0); HEMOGLOBIN. 11.9 g/dL (12.0-16.0); MEAN CORPUSCULAR HEMOGLOBIN 32.6 pg (28.0-32.0); MEAN CORPUSCULAR VOLUME 101.9 fL (81.0-99.0); MEAN PLATELET VOLUME 9.9 fl (7.4-10.4); RED BLOOD CELL COUNT 3.65 mill/uL (4.2-5.4); RED CELL DISTRIBUTION WIDTH 18.9 % (11.6-14.6)
[2023-12-12 09:14] LABS: DIFFERENTIAL COMMENT 1
[2023-12-12 09:22] LABS: PLATELET 35 x1000/uL (130-400)
[2023-12-12 15:15] LABS: BG BASE EXCESS 1.4 mmol/L (-2.0-2.0); BG CARBOXYHEMOGLOBIN 0.1 % (0.5-1.5); BG DEOXYHEMOGLOBIN 2.9 % (0.0-5.0); BG FRACTION INSPIRED OXYGEN 40; BG METHEMOGLOBIN 0.5 % (0.0-1.5); BG OXYGEN SATURATION 97.1 % (92.0-98.5); BG OXYHEMOGLOBIN 96.5 % (94.0-97.0); BG PCO2 61.2 mmHg (35.0-45.0); BG PH 7.294 (7.350-7.450); BG PO2 101.5 mmHg (75.0-100.0); BG SAMPLE SITE RIGHT RADIAL; BG TOTAL HEMOGLOBIN 11.7 g/dL (12.0-18.0); BG VENT MODE MASK - BIPAP
[2023-12-12 16:53] LABS: PLATELET ESTIMATE MARKEDLY DECREASED
[2023-12-12 16:54] LABS: ANISOCYTOSIS 1+
[2023-12-13] VITALS (16 sets, daily range): BP systolic 111–132; BP diastolic 43–66; PULSE 77–101; RESP 25–46; TEMP 97.3–98.4
[2023-12-13 06:45] LABS: HEMATOCRIT. 36.7 % (36.0-48.0); HEMOGLOBIN. 11.7 g/dL (12.0-16.0); MEAN CORPUSCULAR HEMOGLOBIN 32.5 pg (28.0-32.0); MEAN CORPUSCULAR HGB CONC 31.9 g/dL (31.0-37.0); MEAN CORPUSCULAR VOLUME 101.9 fL (81.0-99.0); MEAN PLATELET VOLUME 9.8 fl (7.4-10.4); RED CELL DISTRIBUTION WIDTH 19.5 % (11.6-14.6); WHITE BLOOD COUNT 7.8 x1000/uL (4.5-11.0)
[2023-12-13 07:02] LABS: CALCIUM 8.9 mg/dL (8.7-10.4); POTASSIUM 5.5 mEq/L (3.5-5.1)
[2023-12-13 07:07] LABS: CREATININE 1.2 mg/dL (0.6-1.0)
[2023-12-13 08:29] LABS: DIFFERENTIAL COMMENT 1
[2023-12-13 08:32] LABS: PLATELET 50 x1000/uL (130-400)
[2023-12-13] MEDS: SODIUM POLYSTYRENE SULFONATE 15 G/60 ML BOT PO NR (09:43)
[2023-12-13 13:37] LABS: NUCLEATED RED BLOOD CELLS 1 /100 WBC
[2023-12-13 13:38] LABS: PLATELET ESTIMATE MARKEDLY DECREASED
[2023-12-13 13:39] LABS: ANISOCYTOSIS 1+
[2023-12-14] VITALS (17 sets, daily range): BP systolic 117–143; BP diastolic 47–83; PULSE 73–101; RESP 24–40; TEMP 96.1–97.3
[2023-12-14 07:43] LABS: POTASSIUM 4.3 mEq/L (3.5-5.1)
[2023-12-14 07:44] LABS: CALCIUM 8.8 mg/dL (8.7-10.4)
[2023-12-14 07:56] LABS: HEMATOCRIT. 35.1 % (36.0-48.0); HEMOGLOBIN. 11.6 g/dL (12.0-16.0); MEAN CORPUSCULAR HEMOGLOBIN 32.8 pg (28.0-32.0); MEAN CORPUSCULAR HGB CONC 33.1 g/dL (31.0-37.0); MEAN CORPUSCULAR VOLUME 99.1 fL (81.0-99.0); MEAN PLATELET VOLUME 9.5 fl (7.4-10.4); RED BLOOD CELL COUNT 3.55 mill/uL (4.2-5.4); RED CELL DISTRIBUTION WIDTH 17.8 % (11.6-14.6); WHITE BLOOD COUNT 3.1 x1000/uL (4.5-11.0)
[2023-12-14 08:16] LABS: DIFFERENTIAL COMMENT 1
[2023-12-14 08:18] LABS: PLATELET 25 x1000/uL (130-400)
[2023-12-14 15:01] LABS: PLATELET ESTIMATE MARKEDLY DECREASED
[2023-12-15] VITALS (73 sets, daily range): BP systolic 72–171; BP diastolic 29–131; PULSE 73–112; RESP 17–43; TEMP 96.8–98.3; O2SAT 96
[2023-12-15 07:02] LABS: POTASSIUM 4.4 mEq/L (3.5-5.1)
[2023-12-15 07:04] LABS: CALCIUM 8.3 mg/dL (8.7-10.4)
[2023-12-15 08:25] LABS: HEMOGLOBIN. 12.9 g/dL (12.0-16.0); MEAN CORPUSCULAR HEMOGLOBIN 32.1 pg (28.0-32.0); MEAN CORPUSCULAR HGB CONC 32.3 g/dL (31.0-37.0); MEAN CORPUSCULAR VOLUME 99.5 fL (81.0-99.0); MEAN PLATELET VOLUME 10.3 fl (7.4-10.4); RED BLOOD CELL COUNT 4.02 mill/uL (4.2-5.4); RED CELL DISTRIBUTION WIDTH 18.3 % (11.6-14.6); WHITE BLOOD COUNT 2.2 x1000/uL (4.5-11.0)
[2023-12-15 08:38] LABS: DIFFERENTIAL COMMENT 1
[2023-12-15 08:40] LABS: PLATELET 29 x1000/uL (130-400)
[2023-12-15] MEDS: SODIUM CHLORIDE 0.45% 1,000 ML IV SCH (09:30)
[2023-12-15 10:29] LABS: BG BASE EXCESS 2.9 mmol/L (-2.0-2.0); BG CARBOXYHEMOGLOBIN 1.1 % (0.5-1.5); BG DEOXYHEMOGLOBIN 7.5 % (0.0-5.0); BG FRACTION INSPIRED OXYGEN 45; BG HCO3 ACT 30.5 mmol/L (22.0-26.0); BG METHEMOGLOBIN 0.3 % (0.0-1.5); BG OXYGEN SATURATION 92.4 % (92.0-98.5); BG OXYHEMOGLOBIN 91.1 % (94.0-97.0); BG PCO2 59.5 mmHg (35.0-45.0); BG PH 7.327 (7.350-7.450); BG PO2 65.9 mmHg (75.0-100.0); BG SAMPLE SITE RIGHT RADIAL; BG TOTAL HEMOGLOBIN 13.9 g/dL (12.0-18.0); BG VENT MODE MASK - BIPAP
[2023-12-15 11:26] LABS: ANISOCYTOSIS 2+; PLATELET ESTIMATE MARKEDLY DECREASED
[2023-12-15] MEDS: PROPOFOL 10MG/ML 100ML 100 ML IV PRN (12:41)
[2023-12-15] MEDS: PHENYLEPHRINE 100 MG in DEXT 5% WATER 240 ML IV PRN (12:43)
[2023-12-15 12:54] LABS: BG CARBOXYHEMOGLOBIN 0.3 % (0.5-1.5); BG DEOXYHEMOGLOBIN 3.7 % (0.0-5.0); BG FRACTION INSPIRED OXYGEN 50; BG HCO3 ACT 27.6 mmol/L (22.0-26.0); BG METHEMOGLOBIN 0.3 % (0.0-1.5); BG OXYGEN SATURATION 96.3 % (92.0-98.5); BG OXYHEMOGLOBIN 95.7 % (94.0-97.0); BG PH 7.479 (7.350-7.450); BG PO2 74.1 mmHg (75.0-100.0); BG SAMPLE SITE RIGHT RADIAL; BG TOTAL HEMOGLOBIN 13.7 g/dL (12.0-18.0); BG VENT MODE VENT - AC
[2023-12-15] MEDS ORDERED: CEFEPIME 2GM IN DEXT 5% 100ML IV SCH (14:15)
[2023-12-15] MEDS: VANCOMYCIN 1.25GM PMX (XELLIA) 250 ML IV SCH (16:46)
[2023-12-15] MEDS: CEFEPIME 2GM/100ML 100 ML IV SCH (16:47)
[2023-12-15] MEDS: BLOOD SUGAR DIAGNOSTIC STRIP TEST SCH (18:12)
[2023-12-15] MEDS ORDERED: DEXMEDETOMIDINE 400 MCG/100 ML 100 ML IV PRN (18:50)
[2023-12-15] MEDS: INSULIN LISPRO 100 UNITS/ML SUBCUT SCH (19:03)
[2023-12-15] MEDS ORDERED: NOREPINEPHRINE 8 MG in DEXTROSE 5% WATER 250 ML IV PRN (19:45)
[2023-12-16] VITALS (60 sets, daily range): BP systolic 82–130; BP diastolic 36–55; PULSE 79–102; RESP 21–41; TEMP 97.5–99.2
[2023-12-16 04:45] LABS: POTASSIUM 4.4 mEq/L (3.5-5.1)
[2023-12-16 04:46] LABS: CALCIUM 8.8 mg/dL (8.7-10.4)
[2023-12-16 04:51] LABS: CREATININE 1.3 mg/dL (0.6-1.0)
[2023-12-16 09:49] LABS: BG BASE EXCESS 1.1 mmol/L (-2.0-2.0); BG CARBOXYHEMOGLOBIN 0.3 % (0.5-1.5); BG DEOXYHEMOGLOBIN 4.4 % (0.0-5.0); BG FRACTION INSPIRED OXYGEN 40; BG HCO3 ACT 23.9 mmol/L (22.0-26.0); BG METHEMOGLOBIN 0.3 % (0.0-1.5); BG OXYGEN SATURATION 95.6 % (92.0-98.5); BG PCO2 32.2 mmHg (35.0-45.0); BG PH 7.488 (7.350-7.450); BG PO2 74.1 mmHg (75.0-100.0); BG SAMPLE SITE RIGHT RADIAL; BG TOTAL HEMOGLOBIN 12.8 g/dL (12.0-18.0); BG VENT MODE VENT - AC
[2023-12-16] MEDS ORDERED: VANCOMYCIN 1G PREMIX 200 ML IV SCH (16:00)
[2023-12-16] MEDS: VANCOMYCIN 750MG PREMIX 150 ML IV SCH (17:05)
[2023-12-16] MEDS: RIFAXIMIN 550 MG TABLET NG SCH (21:12)
[2023-12-16] MEDS: MICONAZOLE NITRATE 2% OINT 71GM TOP SCH (21:12)
[2023-12-17] VITALS (79 sets, daily range): BP systolic 39–145; BP diastolic 10–120; PULSE 0–136; RESP 0–56; TEMP 96.8–99.3
[2023-12-17] MEDS: NOREPINEPHRINE 8MG/250ML PMX 250 ML IV PRN (00:13)
[2023-12-17 05:45] LABS: POTASSIUM 4.7 mEq/L (3.5-5.1)
[2023-12-17 05:46] LABS: CALCIUM 8.7 mg/dL (8.7-10.4); HEMATOCRIT. 38.2 % (36.0-48.0); HEMOGLOBIN. 12.5 g/dL (12.0-16.0); MEAN CORPUSCULAR HEMOGLOBIN 32.7 pg (28.0-32.0); MEAN CORPUSCULAR HGB CONC 32.9 g/dL (31.0-37.0); MEAN CORPUSCULAR VOLUME 99.5 fL (81.0-99.0); MEAN PLATELET VOLUME 10.7 fl (7.4-10.4); RED BLOOD CELL COUNT 3.83 mill/uL (4.2-5.4); RED CELL DISTRIBUTION WIDTH 20.3 % (11.6-14.6)
[2023-12-17 05:48] LABS: INR 1.7; PROTHROMBIN TIME 18.2 sec (9.6-11.0)
[2023-12-17 05:52] LABS: AMMONIA 97 uMol/L (<32)
[2023-12-17 06:10] LABS: CREATININE 1.7 mg/dL (0.6-1.0)
[2023-12-17] MEDS: CEFEPIME 2GM/100ML 100 ML IV SCH (06:30)
[2023-12-17 07:50] LABS: DIFFERENTIAL COMMENT 1
[2023-12-17] MEDS ORDERED: DEXMEDETOMIDINE 400 MCG/100 ML 100 ML IV PRN (08:00)
[2023-12-17] MEDS: DEXTROSE 50% WATER 50ML SYRINGE IV PRN (08:36)
[2023-12-17 09:35] LABS: BG BASE EXCESS -6.8 mmol/L (-2.0-2.0); BG CARBOXYHEMOGLOBIN 0.2 % (0.5-1.5); BG DEOXYHEMOGLOBIN 5.5 % (0.0-5.0); BG FRACTION INSPIRED OXYGEN 45; BG METHEMOGLOBIN 0.4 % (0.0-1.5); BG OXYGEN SATURATION 94.5 % (92.0-98.5); BG OXYHEMOGLOBIN 93.9 % (94.0-97.0); BG PCO2 29.5 mmHg (35.0-45.0); BG PH 7.379 (7.350-7.450); BG PO2 74.7 mmHg (75.0-100.0); BG SAMPLE SITE LEFT BRACHIAL; BG TOTAL HEMOGLOBIN 12.9 g/dL (12.0-18.0); BG TOTAL RESPIRATORY RATE 32 b/min; BG VENT MODE VENT - AC
[2023-12-17] MEDS ORDERED: DILTIAZEM HCL 5MG/ML 5ML VIAL IV PRN (10:15)
[2023-12-17] MEDS: EPINEPHRINE 10 MG in SODIUM CHLORIDE 0.9% 240 ML IV PRN (10:41)
[2023-12-17] MEDS: VASOPRESSIN 20 UNIT in SODIUM CHLORIDE 0.9% 99 ML IV PRN (10:41)
[2023-12-17 11:17] LABS: ANISOCYTOSIS 2+; NUCLEATED RED BLOOD CELLS 2 /100 WBC; PLATELET ESTIMATE MARKEDLY DECREASED
[2023-12-17 11:27] LABS: PLATELET 8 x1000/uL (130-400)
[2023-12-17] MEDS: NOREPINEPHRINE 32 MG in DEXT 5% WATER 218 ML IV PRN (11:34)
[2023-12-17 11:40] LABS: LACTIC ACID 10.5 mmol/L (0.4-2.0)
[2023-12-17] MEDS: METHYLPREDNISOLONE SOD SUCC 40MG/ML (ACT-O-VIAL) IV SCH (13:51)
[2023-12-17] MEDS: VANCOMYCIN 500MG PREMIX 100 ML IV SCH (16:08)
[2023-12-17] MEDS ORDERED: EPINEPHRINE 20 MG in SODIUM CHLORIDE 0.9% 480 ML IV PRN (20:00)
[2023-12-17] MEDS: GLUCAGON,HUMAN RECOMBINANT 1MG/VIAL IV NR (20:52)
[2023-12-17] MEDS: LACTATED RINGERS 1,000 ML IV SCH (21:37)
[2023-12-17] MEDS: DEXTROSE 10% WATER 500 ML IV ONE (21:45)
[2023-12-17] MEDS: METHYLPREDNISOLONE SOD SUCC 125MG/2ML (ACT-O-VIAL) IV SCH (22:00)
== END 2023-12-17 22:10 | DRG 720 ==
LOC: ER 08:42 → EDBEDREQ 09:03 → MICUSO 10:19 → EDBEDREQTM 10:21 → EDBEDREQ 10:21 → 5EST 11-27 14:50 → 7EST 12-10 16:50 → 5EST 12-11 09:45 → CVICU 12-15 10:28
PROVIDERS: ADMIT Family Medicine Adult Medicine; ATTEND Family Medicine Adult Medicine
PROC: 0BH17EZ Insertion of Endotracheal Airway into Trachea, Via Natural or Artificial Opening (ICD-10-PCS; 2023-11-25)
PROC: 5A0955A Assistance with Respiratory Ventilation, Greater than 96 Consecutive Hours, High Flow/Velocity Cannula (ICD-10-PCS; 2023-11-26)
PROC: 5A09357 Assistance with Respiratory Ventilation, Less than 24 Consecutive Hours, Continuous Positive Airway Pressure (ICD-10-PCS; 2023-12-02)
PROC: 5A09357 Assistance with Respiratory Ventilation, Less than 24 Consecutive Hours, Continuous Positive Airway Pressure (ICD-10-PCS; 2023-12-03)
PROC: 5A09357 Assistance with Respiratory Ventilation, Less than 24 Consecutive Hours, Continuous Positive Airway Pressure (ICD-10-PCS; 2023-12-04)
PROC: 5A09357 Assistance with Respiratory Ventilation, Less than 24 Consecutive Hours, Continuous Positive Airway Pressure (ICD-10-PCS; 2023-12-05)
PROC: 5A09357 Assistance with Respiratory Ventilation, Less than 24 Consecutive Hours, Continuous Positive Airway Pressure (ICD-10-PCS; 2023-12-06)
PROC: 5A09357 Assistance with Respiratory Ventilation, Less than 24 Consecutive Hours, Continuous Positive Airway Pressure (ICD-10-PCS; 2023-12-07)
PROC: 5A09357 Assistance with Respiratory Ventilation, Less than 24 Consecutive Hours, Continuous Positive Airway Pressure (ICD-10-PCS; 2023-12-11)
PROC: 5A09357 Assistance with Respiratory Ventilation, Less than 24 Consecutive Hours, Continuous Positive Airway Pressure (ICD-10-PCS; 2023-12-12)
PROC: 5A09357 Assistance with Respiratory Ventilation, Less than 24 Consecutive Hours, Continuous Positive Airway Pressure (ICD-10-PCS; 2023-12-13)
PROC: 5A09357 Assistance with Respiratory Ventilation, Less than 24 Consecutive Hours, Continuous Positive Airway Pressure (ICD-10-PCS; 2023-12-14)
PROC: 5A1945Z Respiratory Ventilation, 24-96 Consecutive Hours (ICD-10-PCS; principal; 2023-12-15)
PROC: 5A1945Z Respiratory Ventilation, 24-96 Consecutive Hours (ICD-10-PCS; 2023-12-15)
PROC: 05H533Z Insertion of Infusion Device into Right Subclavian Vein, Percutaneous Approach (ICD-10-PCS; 2023-12-15)
PROC: B546ZZA Ultrasonography of Right Subclavian Vein, Guidance (ICD-10-PCS; 2023-12-15)
PROC: 30233R1 Transfusion of Nonautologous Platelets into Peripheral Vein, Percutaneous Approach (ICD-10-PCS; 2023-12-17)
DX: A41.9 Sepsis, unspecified organism (principal); R65.21 Severe sepsis with septic shock; G92.8 Other toxic encephalopathy; J15.212 Pneumonia due to Methicillin resistant Staphylococcus aureus; J96.02 Acute respiratory failure with hypercapnia; J96.01 Acute respiratory failure with hypoxia; I82.401 Acute embolism and thrombosis of unspecified deep veins of right lower extremity; D69.6 Thrombocytopenia, unspecified; E87.0 Hyperosmolality and hypernatremia; J44.0 Chronic obstructive pulmonary disease with (acute) lower respiratory infection; I11.0 Hypertensive heart disease with heart failure; I48.20 Chronic atrial fibrillation, unspecified; N39.0 Urinary tract infection, site not specified; I34.0 Nonrheumatic mitral (valve) insufficiency; I27.20 Pulmonary hypertension, unspecified; K74.60 Unspecified cirrhosis of liver; K76.6 Portal hypertension; K76.82 Hepatic encephalopathy; N17.9 Acute kidney failure, unspecified; E87.5 Hyperkalemia; I86.8 Varicose veins of other specified sites; I48.92 Unspecified atrial flutter; I50.9 Heart failure, unspecified; I25.10 Atherosclerotic heart disease of native coronary artery without angina pectoris; Z20.822 Contact with and (suspected) exposure to COVID-19; I49.5 Sick sinus syndrome; F03.90 Unspecified dementia, unspecified severity, without behavioral disturbance, psychotic disturbance, mood disturbance, and anxiety; D64.9 Anemia, unspecified; E86.9 Volume depletion, unspecified; E80.6 Other disorders of bilirubin metabolism; I25.2 Old myocardial infarction; Z95.0 Presence of cardiac pacemaker; Z90.49 Acquired absence of other specified parts of digestive tract; Z79.01 Long term (current) use of anticoagulants; Z78.1 Physical restraint status
CPT/HCPCS: 31500; 36415; 36573; 36600; 71045; 74018; 76705; 80048; 80053; 80076; 80202; 81003; 82040; 82140; 82375; 82805; 82962; 83036; 83605; 83735; 83880; 84100; 84134; 84145; 84478; 84484; 85025; 86022; 86850; 86900; 87070; 87077; 87106; 87186; 87426; 87804; 92610; 93005; 93306; 93970; 94002; 94003; 94640; 94660; 99291; A6261; C1725; C1892; C9113; J0456; J0692; J0696; J1200; J1610; J1650; J1815; J2250; J2370; J2704; J2920; J3370; J3475; J3480; J3490; J7030; J7050; J7060; J7070; J7120; J7512; J7608; J7626; P9034; A4315